=== PATIENT | female | born 1990 | race Caucasian/White ===

== ENCOUNTER 2017-07-13 16:09 | Emergency (ER) | payer BC ==
[2017-07-13 16:23] VITALS: BP 148/92
[2017-07-13] MEDS ORDERED: Alum Hydrox/Mag Hydrox/Simeth 30 ML, Lidocaine 2% 15 ML PO ONE ×2 (18:03)
--- NOTE | 2017-07-13 18:09 | EDM.PDOC ---
ED HPI GENERAL MEDICAL PROBLEM - General Chief Complaint: Chest Pain Stated Complaint: CHEST PAINS Time Seen by Provider: 07/13/17 16:35 Source of Information: Reports: Patient History Limitations: Reports: No Limitations - History of Present Illness INITIAL COMMENTS - FREE TEXT/NARRATIVE: Patient is a 27 y/o female who presents to the ED complainig of left lateral chest pain for the past 3 wks. States initially would come and go but as of recent has been constant. Pain is severe at times. Sharp in nature worsened with breathing and palpation. Patient has history of melanoma. She is on the mirena and currently smokes. No history of DVT/PE. She denies pre/syncopal episodes, sob, acid reflux, fever, abdominal pain, hemoptysis, or anhy additional complaints. Left Chest Pain Score (Numeric/FACES): 6 - Related Data Allergies Allergy/AdvReac Type Severity Reaction Status Date / Time No Known Allergies Allergy Verified 04/21/16 15:19 Home Meds: Home Meds . [No Known Home Meds] 07/13/17 [History] Past Medical History HEENT History: Reports: Impaired Vision Other HEENT History: wears glasses Cardiovascular History: Reports: None Respiratory History: Reports: None Neurological History: Reports: Headaches, Chronic, Migraines Oncologic (Cancer) History: Reports: Malignant Melanoma - Past Surgical History GI Surgical History: Reports: Cholecystectomy Social & Family History - Family History Family Medical History: Noncontributory - Tobacco Use Smoking Status *Q: Former Smoker Years of Tobacco use: 10 Packs/Tins Daily: 0.5 Used Tobacco, but Quit: Yes Month Tobacco Last Used: 06/2017 Second Hand Smoke Exposure: Yes - Alcohol Use Days Per Week of Alcohol Use: 3 Number of Drinks Per Day: 2 Total Drinks Per Week: 6 - Recreational Drug Use Recreational Drug Use: No Drug Use in Last 12 Months: No ED ROS GENERAL - Review of Systems Review Of Systems: See Below Constitutional: Reports: No Symptoms HEENT: Reports: No Symptoms. Denies: Vision Change Respiratory: Reports: Shortness of Breath, Pleuritic Chest Pain. Denies: Cough , Sputum, Hemoptysis Cardiovascular: Reports: Chest Pain, Other (just cant take a deep breath). Denies: Dyspnea on Exertion, Palpitations GI/Abdominal: Reports: No Symptoms : Reports: No Symptoms Musculoskeletal: Reports: No Symptoms Skin: Reports: No Symptoms Neurological: Reports: No Symptoms ED EXAM, GENERAL - Physical Exam Exam: See Below Exam Limited By: No Limitations General Appearance: Alert, WD/WN, No Apparent Distress Ears: Hearing Grossly Normal Nose: Normal Inspection Throat/Mouth: Normal Voice, No Airway Compromise Neck: Normal Inspection, Supple Respiratory/Chest: No Respiratory Distress, Lungs Clear, Normal Breath Sounds, No Accessory Muscle Use, Other (Mild discomfort noted with palpation to the left lateral chest. No bruising, swelling, wounds, rash, or bony abnormalities noted. Pain is worsened with flexing her upper extremities against resistance. Although minor.) Cardiovascular: Normal Peripheral Pulses, Regular Rate, Rhythm, No Murmur Peripheral Pulses: 4+: Radial (L), Radial (R) GI/Abdominal: Normal Bowel Sounds, Soft, Non-Tender, No Organomegaly, No Distention Back Exam: Normal Inspection Extremities: Normal Inspection, Non-Tender, No Pedal Edema, Normal Capillary Refill Neurological: Alert, Oriented, CN II-XII Intact, Normal Cognition, No Motor/ Sensory Deficits Psychiatric: Normal Affect, Normal Mood Skin Exam: Warm, Dry, Intact, Normal Color, No Rash Course - Vital Signs Last Recorded V/S: Last Vital Signs Temp 98.2 F 07/13/17 16:16 Pulse 62 07/13/17 16:16 Resp 16 07/13/17 16:16 BP 148/92 H 07/13/17 16:16 Pulse Ox 100 07/13/17 16:16 - Orders/Labs/Meds Labs: Laboratory Tests 07/13/17 07/13/17 07/13/17 Range/Units 17:41 17:41 17:41 WBC (3.98-10.04) K/mm3 RBC (3.98-5.22) M/mm3 Hgb (11.2-15.7) gm/L Hct (34.1-44.9) % MCV (79.4-94.8) fl MCH (25.6-32.2) pg MCHC (32.2-35.5) g/dl RDW Std Deviation (36.4-46.3) fL Plt Count (182-369) K/mm3 MPV (9.4-12.3) fl Neut % (Auto) (34.0-71.1) % Lymph % (Auto) (19.3-51.7) % Emery % (Auto) (4.7-12.5) % Eos % (Auto) (0.7-5.8) Baso % (Auto) (0.1-1.2) % Neut # (Auto) (1.56-6.13) K/mm3 Lymph # (Auto) (1.18-3.74) K/mm3 Emery # (Auto) (0.24-0.36) K/mm3 Eos # (Auto) (0.04-0.36) K/mm3 Baso # (Auto) (0.01-0.08) K/mm3 Manual Slide Review D-Dimer, Quantitative 0.27 (0.19-0.59) mg/L Sodium 140 (136-145) mEq/L Potassium 4.1 (3.5-5.1) mEq/L Chloride 106 (98-107) mEq/L Carbon Dioxide 26 (21-32) mEq/L Anion Gap 12.1 (5-15) BUN 7 (7-18) mg/dL Creatinine 0.7 (0.55-1.02) mg/dL Est Cr Clr Drug Dosing 103.32 mL/min Estimated GFR (MDRD) > 60 (>60) mL/min BUN/Creatinine Ratio 10.0 L (14-18) Glucose 92 (74-106) mg/dL Calcium 9.0 (8.5-10.1) mg/dL Total Bilirubin 0.4 (0.2-1.0) mg/dL AST 22 (15-37) U/L ALT 40 (14-59) U/L Alkaline Phosphatase 80 (46-116) U/L C-Reactive Protein < 0.2 (<1.0) mg/dL Total Protein 6.6 (6.4-8.2) g/dl Albumin 3.7 (3.4-5.0) g/dl Globulin 2.9 gm/dL Albumin/Globulin Ratio 1.3 (1-2) HCG, Qual Negative (NEGATIVE) 07/13/17 Range/Units 17:41 WBC 8.27 (3.98-10.04) K/mm3 RBC 4.33 (3.98-5.22) M/mm3 Hgb 13.3 (11.2-15.7) gm/L Hct 39.1 (34.1-44.9) % MCV 90.3 (79.4-94.8) fl MCH 30.7 (25.6-32.2) pg MCHC 34.0 (32.2-35.5) g/dl RDW Std Deviation 40.2 (36.4-46.3) fL Plt Count 297 (182-369) K/mm3 MPV 9.6 (9.4-12.3) fl Neut % (Auto) 57.6 (34.0-71.1) % Lymph % (Auto) 32.6 (19.3-51.7) % Emery % (Auto) 7.3 (4.7-12.5) % Eos % (Auto) 2.2 (0.7-5.8) Baso % (Auto) 0.2 (0.1-1.2) % Neut # (Auto) 4.76 (1.56-6.13) K/mm3 Lymph # (Auto) 2.70 (1.18-3.74) K/mm3 Emery # (Auto) 0.60 H (0.24-0.36) K/mm3 Eos # (Auto) 0.18 (0.04-0.36) K/mm3 Baso # (Auto) 0.02 (0.01-0.08) K/mm3 Manual Slide Review Normal smear D-Dimer, Quantitative (0.19-0.59) mg/L Sodium (136-145) mEq/L Potassium (3.5-5.1) mEq/L Chloride (98-107) mEq/L Carbon Dioxide (21-32) mEq/L Anion Gap (5-15) BUN (7-18) mg/dL Creatinine (0.55-1.02) mg/dL Est Cr Clr Drug Dosing mL/min Estimated GFR (MDRD) (>60) mL/min BUN/Creatinine Ratio (14-18) Glucose (74-106) mg/dL Calcium (8.5-10.1) mg/dL Total Bilirubin (0.2-1.0) mg/dL AST (15-37) U/L ALT (14-59) U/L Alkaline Phosphatase (46-116) U/L C-Reactive Protein (<1.0) mg/dL Total Protein (6.4-8.2) g/dl Albumin (3.4-5.0) g/dl Globulin gm/dL Albumin/Globulin Ratio (1-2) HCG, Qual (NEGATIVE) Meds: Medications Discontinued Medications Generic Name Dose Route Start Last Admin Trade Name Hunter PRN Reason Stop Dose Admin Al Hydroxide/Mg Hydroxide 30 0 ml 07/13/17 18:03 07/13/17 19:14 ml/ Lidocaine HCl 15 ml PO 07/13/17 18:04 45 ml ONETIME ONE Administration - Re-Assessments/Exams Free Text/Narrative Re-Assessment/Exam: Patient does have a history of melanoma, smoking, and mirena. Thus initial labs and studies will be CBC, chem 14, CRP, d-dimer, hCG qualitative, and chest x- ray one view along with EKG. Chest x-ray did not reveal any acute abnormalities. EKG sinus bradycardia at a rate of 50 with QTC of 386. No acute ST changes noted. 07/13/17 18:08 have also ordered a GI cocktail with history of nausea and vomiting approximately one week ago. Labs reviewed: CBC, d-dimer, and chemistry panel were all normal. CRP less than 0.2. HCG negative. Discuss results of labs, EKG, and chest x-ray with patient. She received no relief with GI cocktail. Will discharge patient home with instructions as documented.. Departure - Departure Time of Disposition: 19:08 Disposition: Home, Self-Care 01 Condition: Good Clinical Impression: Atypical chest pain Instructions: Nonspecific Chest Pain, [id number] Referrals: Yenifer Balderas PA-C [Primary Care Provider] - Forms: ED Department Discharge Additional Instructions: As discussed believe cause of pain to the chest is chest wall related. Thus treatment at this point will be symptomatic care including Tylenol 650 mg every 6 hours and ibuprofen 600 mg every 6 hours as needed. Refrain from any activities that cause worsening pain. Follow-up with primary care provider in the next week if symptoms have not drastically improved. Return to ED if you develop any new or worsening symptoms.
--- NOTE | 2017-07-14 11:14 | CR ---
Chest: Portable view of the chest was obtained. Comparison: No prior chest x-ray. Heart size and mediastinum are normal. Lungs are clear. Bony structures are grossly intact. Previous cholecystectomy is noted. Impression: 1. Nothing acute is identified on portable chest x-ray. Diagnostic code #2
== END 2017-07-13 19:40 | disposition home or self-care (01) ==
LOC: JD.ED 16:09
DX: R07.89 Other chest pain (principal); Z87.891 Personal history of nicotine dependence
CPT/HCPCS: 36415; 71045; 80053; 84703; 85025; 85379; 86140; 93005; 99284; A9270; 93010

== ENCOUNTER 2024-04-02 11:14 | Day surgery (SDC) | payer BC ==
[~2024-04-02 11:14] MED LIST: Sodium Chloride 0.9% 10 ML Syringe FLUSH PRN; Sodium Chloride 0.9% 10 ML Syringe FLUSH SCH; dexmedeTOMIDine HCl 200 MCG/2 ML SDV ONE
[2024-04-02] MEDS ORDERED: Ketorolac 30 MG/ML SDV ONE (11:32)
[2024-04-02] MEDS ORDERED: Dexamethasone 4 MG/ML 5 ML MDV ONE (11:32)
[2024-04-02] MEDS ORDERED: Ondansetron 4 MG/2 ML SDV ONE ×2 (11:32→13:53)
[2024-04-02] MEDS ORDERED: ceFAZolin 2 GM Vial ONE (11:32)
[2024-04-02] MEDS ORDERED: Lidocaine 2% 5 ML SDV ONE (11:32)
[2024-04-02] MEDS: Lactated Ringers 1,000 ML IV SCH (11:40)
[2024-04-02] MEDS ORDERED: Propofol 200 MG/20 ML SDV ONE (11:42)
[2024-04-02] MEDS ORDERED: Midazolam 1 MG/ML 2 ML SDV ONE (11:43)
[2024-04-02] MEDS ORDERED: fentaNYL 100 MCG/2 ML SDV ONE (11:43)
[2024-04-02] MEDS ORDERED: EPINEPHrine 1 MG/ML SDV ONE (12:48)
[2024-04-02] MEDS: Scopalamine 1mg/3day Transdermal Patch TOP ONE (12:50)
[2024-04-02] MEDS: Acetaminophen 325 MG Tab PO ONE (12:50)
[2024-04-02] MEDS: Famotidine 20 MG/2 ML SDV IVPUSH ONE (12:50)
[2024-04-02] MEDS ORDERED: Metoclopramide 10 MG/2 ML SDV ONE (14:10)
[2024-04-02] MEDS: Bupivacaine 0.25% 10 ML SDV ONE (14:20)
[2024-04-02] MEDS: traMADol 50 MG Tab PO PRN (16:31)
[2024-04-02 17:22] VITALS: BP 111/70; PULSE 59
== END 2024-04-02 16:45 | disposition home or self-care (01) ==
LOC: JD.SDS 11:14
PROVIDERS: ATTEND Orthopaedic Surgery
DX: S83.241A Other tear of medial meniscus, current injury, right knee, initial encounter (principal); M22.41 Chondromalacia patellae, right knee; X58.XXXA Exposure to other specified factors, initial encounter
CPT/HCPCS: 29881; 81025; A9270; J0171; J0665; J0690; J1100; J1885; J2250; J2405; J2704; J2765; J3010; J3490; J7120; 01400